=== PATIENT | female | born 1940 | race Caucasian/White ===

== ENCOUNTER → 2024-05-19 | Outpatient (REF) | payer MEDICARE, MEDICAID ==
[2024-05-19 13:12] LABS: HEMATOCRIT 39.3 % (36.0-47.0); HEMOGLOBIN 12.4 g/dl (12.0-15.5); MEAN CORPUSCULAR HEMOGLOBIN 29.4 pg (27.0-33.0); MEAN CORPUSCULAR HGB CONC 31.6 g/dl (32.0-36.5); MEAN CORPUSCULAR VOLUME 93.1 fl (80.0-96.0); PLATELET COUNT, AUTOMATED 272 10^3/uL (150-450); RED BLOOD COUNT 4.22 10^6/uL (4.00-5.40); WHITE BLOOD COUNT 6.1 10^3/uL (4.0-10.0)
[2024-05-19 13:34] LABS: BLOOD UREA NITROGEN 23 MG/DL (9-23); CALCIUM LEVEL 9.7 MG/DL (8.3-10.6); CARBON DIOXIDE LEVEL 29 MMOL/L (20-31); CHLORIDE LEVEL 106 MMOL/L (98-107); CREATININE FOR GFR 0.93 MG/DL (0.55-1.30); GLOMERULAR FILTRATION RATE > 60.0 (>32); GLUCOSE, FASTING 103 MG/DL (74-106); POTASSIUM SERUM 4.3 MMOL/L (3.5-5.1); SODIUM LEVEL 142 MMOL/L (136-145)
== END ==
LOC: SKLAB5 12:37
PROVIDERS: ATTEND Internal Medicine
DX: I48.0 Paroxysmal atrial fibrillation (principal)

== ENCOUNTER → 2024-07-04 | Outpatient (REF) | payer MEDICARE, MEDICAID ==
[2024-07-04 10:28] LABS: HEMATOCRIT 35.3 % (36.0-47.0); HEMOGLOBIN 11.1 g/dl (12.0-15.5); MEAN CORPUSCULAR HEMOGLOBIN 29.8 pg (27.0-33.0); MEAN CORPUSCULAR HGB CONC 31.4 g/dl (32.0-36.5); MEAN CORPUSCULAR VOLUME 94.9 fl (80.0-96.0); PLATELET COUNT, AUTOMATED 203 10^3/uL (150-450); RED BLOOD COUNT 3.72 10^6/uL (4.00-5.40); WHITE BLOOD COUNT 5.9 10^3/uL (4.0-10.0)
[2024-07-04 11:20] LABS: ALBUMIN 3.3 G/DL (3.2-5.2); ALKALINE PHOSPHATASE 89 U/L (35-104); ALT/SGPT 18 U/L (7.0-40); AST/SGOT 19 U/L (<34); BILIRUBIN,TOTAL 0.5 MG/DL (0.3-1.2); BLOOD UREA NITROGEN 31 MG/DL (9-23); CALCIUM LEVEL 9.6 MG/DL (8.3-10.6); CARBON DIOXIDE LEVEL 31 MMOL/L (20-31); CHLORIDE LEVEL 104 MMOL/L (98-107); CHOLESTEROL LEVEL 134 MG/DL (<200); CHOLESTEROL RISK RATIO 3.08 (<5); CREATININE FOR GFR 0.86 MG/DL (0.55-1.30); GLOMERULAR FILTRATION RATE > 60.0 (>32); GLUCOSE, FASTING 100 MG/DL (74-106); HDL CHOLESTEROL 43.5 MG/DL (>40); LDL CHOLESTEROL 63.9 MG/DL (<100); NON-HDL-C 90.5 MG/DL; POTASSIUM SERUM 4.4 MMOL/L (3.5-5.1); SODIUM LEVEL 143 MMOL/L (136-145); THYROID STIMULATING HORMONE 1.355 uIU/ML (0.55-4.78); TOTAL PROTEIN 6.1 G/DL (5.7-8.2); TRIGLYCERIDES LEVEL 133 MG/DL (<150)
== END ==
LOC: SKLAB5 07:00
PROVIDERS: ATTEND Internal Medicine
DX: R53.83 Other fatigue (principal); E78.5 Hyperlipidemia, unspecified; I10 Essential (primary) hypertension

== ENCOUNTER → 2024-12-23 | Outpatient (REF) | payer MEDICARE, MEDICAID ==
[2024-12-23 08:11] LABS: HEMATOCRIT 31.9 % (36.0-47.0); HEMOGLOBIN 9.8 g/dl (12.0-15.5); MEAN CORPUSCULAR HGB CONC 30.7 g/dl (32.0-36.5); MEAN CORPUSCULAR VOLUME 94.4 fl (80.0-96.0); PLATELET COUNT, AUTOMATED 217 10^3/uL (150-450); RED BLOOD COUNT 3.38 10^6/uL (4.00-5.40); WHITE BLOOD COUNT 5.1 10^3/uL (4.0-10.0)
[2024-12-23 08:41] LABS: ALBUMIN 3.4 G/DL (3.2-5.2); BILIRUBIN,TOTAL 0.4 MG/DL (0.3-1.2); CREATININE FOR GFR 0.98 MG/DL (0.55-1.30); GLOMERULAR FILTRATION RATE 56.6 (>32); POTASSIUM SERUM 4.5 MMOL/L (3.5-5.1); TOTAL PROTEIN 5.9 G/DL (5.7-8.2)
== END ==
LOC: SKLAB5 07:00
PROVIDERS: ATTEND Internal Medicine
DX: I10 Essential (primary) hypertension (principal)

== ENCOUNTER → 2025-02-23 | Outpatient (CLI) | payer MEDICARE, MEDICAID | LOC: M RAD 11:26 | PROVIDERS: ATTEND Nurse Practitioner Family | DX: M19.011 Primary osteoarthritis, right shoulder (principal) ==

== ENCOUNTER → 2025-04-16 | Outpatient (CLI) | payer MEDICARE, MEDICAID | LOC: M RAD 10:17 | PROVIDERS: ATTEND Physician Assistant | DX: I67.2 Cerebral atherosclerosis (principal); R29.818 Other symptoms and signs involving the nervous system ==

== ENCOUNTER → 2025-04-17 | Outpatient (REF) | payer MEDICARE, MEDICAID ==
[2025-04-17 08:32] LABS: PLATELET COUNT, AUTOMATED 227 10^3/uL (150-450)
[2025-04-17 08:45] LABS: ALT/SGPT < 9 U/L (7.0-40); AST/SGOT 10 U/L (<34); CALCIUM LEVEL 9.1 MG/DL (8.3-10.6); CARBON DIOXIDE LEVEL 27 MMOL/L (20-31); CHLORIDE LEVEL 110 MMOL/L (98-107); CREATININE FOR GFR 1.02 MG/DL (0.55-1.30); GLOMERULAR FILTRATION RATE 53.9 (>32); POTASSIUM SERUM 4.6 MMOL/L (3.5-5.1); SODIUM LEVEL 146 MMOL/L (136-145)
[2025-04-17 08:47] LABS: ESTIMATED AVERAGE GLUCOSE 117.0 MG/DL (60-110)
== END ==
LOC: SKLAB5 07:00
PROVIDERS: ATTEND Internal Medicine
DX: N18.9 Chronic kidney disease, unspecified (principal); D64.9 Anemia, unspecified; Z79.899 Other long term (current) drug therapy

== ENCOUNTER 2025-06-07 10:40 | Inpatient (IN) | payer MEDICAID, MEDICARE ==
[2025-06-07] VITALS (23 sets, daily range): BP systolic 97–158; BP diastolic 44–67; TEMP 97.2–98.9; O2SAT 90–100
[2025-06-07 11:24] LABS: PLATELET COUNT, AUTOMATED 287 10^3/uL (150-450)
[2025-06-07 11:45] LABS: INR 1.47
[2025-06-07 11:48] LABS: CALCIUM LEVEL 8.1 MG/DL (8.3-10.6); CARBON DIOXIDE LEVEL 26.0 MMOL/L (20-31); CHLORIDE LEVEL 110.0 MMOL/L (98-107); CREATININE FOR GFR 1.07 MG/DL (0.55-1.30); GLOMERULAR FILTRATION RATE 50.9 (>32); POTASSIUM SERUM 4.3 MMOL/L (3.5-5.1); SODIUM LEVEL 144.0 MMOL/L (136-145)
[2025-06-07] MEDS: PANTOPRAZOLE 40MG VIAL IV ONE (11:50)
[2025-06-07] MEDS: PANTOPRAZOLE SODIUM 40 MG in D5W 50 ML IV SCH (12:27)
[2025-06-07] MEDS ORDERED: LISI2.5T9 PO (15:22)
[2025-06-07] MEDS ORDERED: MIRA3350 PO (15:22)
[2025-06-07] MEDS ORDERED: LIPI20TA PO (15:22)
[2025-06-07] MEDS ORDERED: ASPI81TA26 PO (15:22)
[2025-06-07] MEDS ORDERED: ACET-897 PO (15:22)
[2025-06-07] MEDS ORDERED: ACET-1515 PO (15:22)
[2025-06-07] MEDS ORDERED: ELIQ5TAB PO (15:22)
[2025-06-07] MEDS ORDERED: FAMO20TA PO (15:22)
[2025-06-07] MEDS ORDERED: SENN-23 PO (15:22)
[2025-06-07] MEDS ORDERED: CEFT1INJ5 IM (15:22)
[2025-06-07] MEDS ORDERED: LIDO76.52 TOP (15:22)
[2025-06-07] MEDS ORDERED: DICL100G10 TOP (15:22)
[2025-06-07] MEDS ORDERED: NEUR300C PO (15:22)
[2025-06-07] MEDS ORDERED: HOME MED LIST COMPLETE! XX SCH (15:25)
[2025-06-07] MEDS: SUCRALFATE SUSP 1GM/10ML UD PO SCH (18:10)
[2025-06-07] MEDS: ACETAMINOPHEN 325 MG TAB PO PRN (19:35)
[2025-06-07] MEDS: GABAPENTIN 300 MG CAP PO SCH (20:21)
[2025-06-07] MEDS: ATORVASTATIN 20 MG TAB PO SCH (20:21)
[2025-06-08] MEDS: PANTOPRAZOLE 40MG VIAL IV SCH (00:22)
[2025-06-08 01:27] LABS: INR 1.19
[2025-06-08 04:59] VITALS: BP 134/60; TEMP 97.2; O2SAT 96
[2025-06-08 05:55] LABS: BASO # 0.1 10^3/uL (0.0-0.2); BASO % 0.9 % (0.0-1.0); EOS # 0.2 10^3/uL (0.0-0.5); EOS % 4.2 % (0.0-3.0); LYMPH # 1.5 10^3/uL (1.5-5.0); LYMPH % 26.9 % (24.0-44.0); MONO # 0.6 10^3/uL (0.0-0.8); MONO % 10.6 % (2.0-8.0); NEUTROPHILS # 3.2 10^3/uL (1.5-8.5); NEUTROPHILS % 56.7 % (36.0-66.0); PLATELET COUNT, AUTOMATED 247 10^3/uL (150-450)
[2025-06-08 06:27] LABS: CALCIUM LEVEL 8.0 MG/DL (8.3-10.6); CARBON DIOXIDE LEVEL 25.0 MMOL/L (20-31); CHLORIDE LEVEL 108.0 MMOL/L (98-107); CREATININE FOR GFR 0.94 MG/DL (0.55-1.30); GLOMERULAR FILTRATION RATE 59.5 (>32); MAGNESIUM LEVEL 2.3 MG/DL (1.8-2.4); POTASSIUM SERUM 4.4 MMOL/L (3.5-5.1); SODIUM LEVEL 141.0 MMOL/L (136-145)
[2025-06-08 07:53] VITALS: BP 152/70; TEMP 97.1; O2SAT 97
[2025-06-08 08:26] LABS: IRON (FE) 11.0 UG/DL (50-170); PERCENT SATURATION 3.5 % (13.2-45.0)
[2025-06-08 08:29] LABS: VITAMIN B12 LEVEL 347.0 PG/ML (211-911)
[2025-06-08] MEDS: MAGNESIUM CITRATE 300 ML BTL PO ONE (09:27)
[2025-06-08 14:41] LABS: PLATELET COUNT, AUTOMATED 248 10^3/uL (150-450)
[2025-06-08 16:05] VITALS: BP 147/67; TEMP 98; O2SAT 97
[2025-06-08] MEDS: FERRIC CARBOXYMALTOSE INJ 750 MG, VIAL MATE ADAPTER 1 EACH in NS 100 ML IV ONE (16:12)
[2025-06-08] MEDS: POLYETHYLENE GLYCOL 238 GM BOTTLE PO ONE (16:43)
[2025-06-08 20:24] LABS: PLATELET COUNT, AUTOMATED 233 10^3/uL (150-450)
[2025-06-08 20:49] VITALS: BP 135/58; TEMP 98.3; O2SAT 93
[2025-06-08 23:56] VITALS: BP 135/63; O2SAT 96
[2025-06-09 00:29] VITALS: TEMP 98.2
[2025-06-09 02:15] LABS: PLATELET COUNT, AUTOMATED 226 10^3/uL (150-450)
[2025-06-09 03:57] VITALS: BP 142/74; TEMP 97.7; O2SAT 96
[2025-06-09 06:27] LABS: BASO # 0.0 10^3/uL (0.0-0.2); BASO % 0.5 % (0.0-1.0); EOS # 0.2 10^3/uL (0.0-0.5); EOS % 3.0 % (0.0-3.0); LYMPH # 1.3 10^3/uL (1.5-5.0); LYMPH % 16.4 % (24.0-44.0); MONO # 1.0 10^3/uL (0.0-0.8); MONO % 12.5 % (2.0-8.0); NEUTROPHILS # 5.1 10^3/uL (1.5-8.5); NEUTROPHILS % 66.8 % (36.0-66.0); PLATELET COUNT, AUTOMATED 223 10^3/uL (150-450)
[2025-06-09 06:34] LABS: CALCIUM LEVEL 8.1 MG/DL (8.3-10.6); CARBON DIOXIDE LEVEL 26.0 MMOL/L (20-31); CHLORIDE LEVEL 109.0 MMOL/L (98-107); CREATININE FOR GFR 0.84 MG/DL (0.55-1.30); GLOMERULAR FILTRATION RATE 68.1 (>32); MAGNESIUM LEVEL 2.5 MG/DL (1.8-2.4); POTASSIUM SERUM 4.0 MMOL/L (3.5-5.1); SODIUM LEVEL 143.0 MMOL/L (136-145)
[2025-06-09] MEDS: POLYETHYLENE GLYCOL 238 GM BOTTLE PO ONE (07:42)
[2025-06-09 08:00] VITALS: BP 139/63; TEMP 97.6; O2SAT 96
[2025-06-09 16:00] VITALS: BP 156/68; TEMP 97.4; O2SAT 96
[2025-06-09] MEDS ORDERED: LIDOCAINE 2% 100 MG/5 ML SDV (FOR ANES.) As Ordered ONE (17:34)
[2025-06-09 20:52] VITALS: BP 161/69; TEMP 97.2; O2SAT 95
[2025-06-09] MEDS ORDERED: ATROPINE SULF 0.4 MG/ML 1 ML VIAL As Ordered ONE (23:08)
[2025-06-09] MEDS ORDERED: ONDANSETRON 4MG/2ML VIAL IV PRN (23:35)
[2025-06-10] VITALS (8 sets, daily range): BP systolic 108–158; BP diastolic 46–77; TEMP 98.1–98.8; O2SAT 90–95
[2025-06-10 05:44] LABS: BASO # 0.0 10^3/uL (0.0-0.2); BASO % 0.3 % (0.0-1.0); EOS # 0.1 10^3/uL (0.0-0.5); EOS % 1.4 % (0.0-3.0); LYMPH # 0.8 10^3/uL (1.5-5.0); LYMPH % 9.6 % (24.0-44.0); MONO # 0.9 10^3/uL (0.0-0.8); MONO % 10.2 % (2.0-8.0); NEUTROPHILS # 6.9 10^3/uL (1.5-8.5); NEUTROPHILS % 77.9 % (36.0-66.0); PLATELET COUNT, AUTOMATED 222 10^3/uL (150-450)
[2025-06-10 06:09] LABS: CALCIUM LEVEL 8.1 MG/DL (8.3-10.6); CARBON DIOXIDE LEVEL 26.0 MMOL/L (20-31); CHLORIDE LEVEL 108.0 MMOL/L (98-107); CREATININE FOR GFR 0.96 MG/DL (0.55-1.30); GLOMERULAR FILTRATION RATE 58.0 (>32); MAGNESIUM LEVEL 2.3 MG/DL (1.8-2.4); POTASSIUM SERUM 4.0 MMOL/L (3.5-5.1); SODIUM LEVEL 143.0 MMOL/L (136-145)
[2025-06-10] MEDS ORDERED: SIMETHICONE 80MG CHEW TAB PO PRN (08:30)
[2025-06-10] MEDS ORDERED: SIME80CH6 PO (10:16)
== END 2025-06-10 12:47 | DRG 378 ==
LOC: M ED 10:40 → EDBD 10:40 → M ED INP 13:00 → EEVIPCON 13:00 → M ICU 14:28 → M PCU 22:10
PROVIDERS: ADMIT Internal Medicine; ATTEND Internal Medicine
PROC: 30233N1 Transfusion of Nonautologous Red Blood Cells into Peripheral Vein, Percutaneous Approach (ICD-10-PCS; 2025-06-07)
PROC: 0DBK8ZX Excision of Ascending Colon, Via Natural or Artificial Opening Endoscopic, Diagnostic (ICD-10-PCS; 2025-06-09)
PROC: 0DJ08ZZ Inspection of Upper Intestinal Tract, Via Natural or Artificial Opening Endoscopic (ICD-10-PCS; principal; 2025-06-09 17:00)
DX: K92.2 Gastrointestinal hemorrhage, unspecified (principal); I69.354 Hemiplegia and hemiparesis following cerebral infarction affecting left non-dominant side; I10 Essential (primary) hypertension; I48.91 Unspecified atrial fibrillation; E78.5 Hyperlipidemia, unspecified; G62.9 Polyneuropathy, unspecified; K59.00 Constipation, unspecified; R13.10 Dysphagia, unspecified; K21.9 Gastro-esophageal reflux disease without esophagitis; R53.1 Weakness; Z87.891 Personal history of nicotine dependence; D50.0 Iron deficiency anemia secondary to blood loss (chronic); K57.30 Diverticulosis of large intestine without perforation or abscess without bleeding; K64.8 Other hemorrhoids; D12.2 Benign neoplasm of ascending colon; K63.89 Other specified diseases of intestine; Z79.01 Long term (current) use of anticoagulants; Z79.82 Long term (current) use of aspirin; Z79.899 Other long term (current) drug therapy

== ENCOUNTER → 2025-06-07 | Outpatient (REF) | payer MEDICARE, MEDICAID ==
[~2025-06-07] MED LIST: ACET-1515 PO; ACET-897 PO; ASPI81TA26 PO; CEFT1INJ5 IM; DICL100G10 TOP; ELIQ5TAB PO; FAMO20TA PO; FERR325T3 PO; GABA-1172 PO; LIDO76.52 TOP; LIPI20TA PO; LISI2.5T9 PO; MIRA3350 PO; NEUR300C PO; PANT20TA51 PO; SENN-23 PO; SIME80CH6 PO; SUCR1TA PO
[2025-06-07 02:32] LABS: APPEARANCE, URINE HAZY (CLEAR); BACTERIA, URINE AUTO 2+ (NEGATIVE); BILIRUBIN, URINE AUTO NEGATIVE (NEGATIVE); BLOOD, URINE BLOOD NEGATIVE (NEGATIVE); GLUCOSE, URINE (UA) AUTO NEGATIVE (NEGATIVE); KETONE, URINE AUTO NEGATIVE (NEGATIVE); LEUKOCYTE ESTERASE, URINE AUTO TRACE (NEGATIVE); NITRITE, URINE AUTO POSITIVE (NEGATIVE); PROTEIN, URINE AUTO NEGATIVE (NEGATIVE); RBC, URINE AUTO 1 /HPF (0-3); SPECIFIC GRAVITY URINE AUTO 1.015 (1.002-1.035); SQUAMOUS EPITHELIAL CELL UR AU 8 /HPF (0-6); UROBILINOGEN, URINE AUTO 0.2 mg/dL (0.0-2.0); WBC, URINE AUTO 35 /HPF (0-3)
[2025-06-07 09:36] LABS: ALT/SGPT < 9 U/L (7.0-40); AST/SGOT 9 U/L (<34); CALCIUM LEVEL 8.0 MG/DL (8.3-10.6); CARBON DIOXIDE LEVEL 26 MMOL/L (20-31); CHLORIDE LEVEL 111 MMOL/L (98-107); CREATININE FOR GFR 1.08 MG/DL (0.55-1.30); GLOMERULAR FILTRATION RATE 50.3 (>32); POTASSIUM SERUM 4.5 MMOL/L (3.5-5.1); SODIUM LEVEL 145 MMOL/L (136-145)
[2025-06-07 10:05] LABS: BASO # 0.0 10^3/uL (0.0-0.2); BASO % 0.4 % (0.0-1.0); EOS # 0.2 10^3/uL (0.0-0.5); EOS % 3.6 % (0.0-3.0); LYMPH # 1.3 10^3/uL (1.5-5.0); LYMPH % 30.0 % (24.0-44.0); MONO # 0.4 10^3/uL (0.0-0.8); MONO % 8.5 % (2.0-8.0); NEUTROPHILS # 2.5 10^3/uL (1.5-8.5); NEUTROPHILS % 57.1 % (36.0-66.0); PLATELET COUNT, AUTOMATED 269 10^3/uL (150-450)
== END ==
LOC: SKLAB5 07:00
PROVIDERS: ATTEND Nurse Practitioner
DX: R53.83 Other fatigue (principal)

== ENCOUNTER → 2025-06-11 | Outpatient (REF) | payer MEDICARE ==
[~2025-06-11] MED LIST changes: -FERR325T3 PO; -GABA-1172 PO; -PANT20TA51 PO; -SUCR1TA PO
[2025-06-11 10:11] LABS: PLATELET COUNT, AUTOMATED 240 10^3/uL (150-450)
== END ==
LOC: SKLAB5 09:39
PROVIDERS: ATTEND Internal Medicine
DX: D64.9 Anemia, unspecified (principal)

== ENCOUNTER 2025-06-15 22:42 | Observation (INO) | payer MEDICARE ==
[~2025-06-15] VITALS: Ht 154.9 cm; Wt 80.2 kg
[2025-06-15 23:19] LABS: BASO # 0.1 10^3/uL (0.0-0.2); BASO % 1.2 % (0.0-1.0); EOS # 0.3 10^3/uL (0.0-0.5); EOS % 4.6 % (0.0-3.0); LYMPH # 1.8 10^3/uL (1.5-5.0); LYMPH % 29.0 % (24.0-44.0); MONO # 0.5 10^3/uL (0.0-0.8); MONO % 8.0 % (2.0-8.0); NEUTROPHILS # 3.4 10^3/uL (1.5-8.5); NEUTROPHILS % 56.7 % (36.0-66.0); PLATELET COUNT, AUTOMATED 217 10^3/uL (150-450)
[2025-06-15 23:39] LABS: CALCIUM LEVEL 8.1 MG/DL (8.3-10.6); CARBON DIOXIDE LEVEL 26.0 MMOL/L (20-31); CHLORIDE LEVEL 111.0 MMOL/L (98-107); CREATININE FOR GFR 0.96 MG/DL (0.55-1.30); GLOMERULAR FILTRATION RATE 58.0 (>32); POTASSIUM SERUM 3.8 MMOL/L (3.5-5.1); SODIUM LEVEL 145.0 MMOL/L (136-145)
[2025-06-16] VITALS (14 sets, daily range): BP systolic 111–154; BP diastolic 51–72; TEMP 97.5–98.5; O2SAT 95–98
[2025-06-16 01:46] LABS: INR 0.97
[2025-06-16] MEDS: NS (Normal Saline) 0.9% 1,000 ML IV SCH (02:41)
[2025-06-16] MEDS: PANTOPRAZOLE 40MG VIAL IV ONE (02:41)
[2025-06-16 07:08] LABS: PLATELET COUNT, AUTOMATED 199 10^3/uL (150-450)
[2025-06-16 07:40] LABS: ALT/SGPT < 9 U/L (7.0-40); AST/SGOT 10 U/L (<34); CALCIUM LEVEL 8.1 MG/DL (8.3-10.6); CARBON DIOXIDE LEVEL 25 MMOL/L (20-31); CHLORIDE LEVEL 112 MMOL/L (98-107); CREATININE FOR GFR 0.86 MG/DL (0.55-1.30); GLOMERULAR FILTRATION RATE 66.2 (>32); MAGNESIUM LEVEL 2.1 MG/DL (1.8-2.4); POTASSIUM SERUM 3.8 MMOL/L (3.5-5.1); SODIUM LEVEL 146 MMOL/L (136-145)
[2025-06-16] MEDS: PANTOPRAZOLE 40MG VIAL IV SCH (08:13)
[2025-06-16] MEDS ORDERED: SUCR1TA PO (09:18)
[2025-06-16] MEDS ORDERED: SIME80CH6 PO (09:18)
[2025-06-16] MEDS ORDERED: PANT20TA51 PO (09:18)
[2025-06-16] MEDS ORDERED: GABA-1172 PO (09:18)
[2025-06-16] MEDS ORDERED: FERR325T3 PO (09:18)
[2025-06-16] MEDS ORDERED: HOME MED LIST COMPLETE! XX SCH (09:20)
[2025-06-16] MEDS ORDERED: SIMETHICONE 80MG CHEW TAB PO PRN (15:50)
[2025-06-16] MEDS ORDERED: ACETAMINOPHEN 500 MG TAB PO PRN (15:50)
[2025-06-16] MEDS ORDERED: GABAPENTIN 300 MG CAP PO PRN (15:50)
[2025-06-16] MEDS: SUCRALFATE 1 GM TAB PO SCH (16:17)
[2025-06-16] MEDS: ATORVASTATIN 20 MG TAB PO SCH (20:57)
[2025-06-16] MEDS: GABAPENTIN 300 MG CAP PO SCH (20:57)
[2025-06-16] MEDS: PANTOPRAZOLE 40MG TAB PO SCH (20:57)
[2025-06-16] MEDS: ACETAMINOPHEN 650 MG ER TAB PO SCH (20:57)
[2025-06-17] VITALS (22 sets, daily range): BP systolic 122–152; BP diastolic 56–67; TEMP 97.2–98.5; O2SAT 92–98
[2025-06-17 05:59] LABS: PLATELET COUNT, AUTOMATED 206 10^3/uL (150-450)
[2025-06-17 06:20] LABS: CALCIUM LEVEL 8.0 MG/DL (8.3-10.6); CARBON DIOXIDE LEVEL 26.0 MMOL/L (20-31); CHLORIDE LEVEL 113.0 MMOL/L (98-107); CREATININE FOR GFR 0.86 MG/DL (0.55-1.30); GLOMERULAR FILTRATION RATE 66.2 (>32); POTASSIUM SERUM 3.8 MMOL/L (3.5-5.1); SODIUM LEVEL 147.0 MMOL/L (136-145)
[2025-06-18 04:05] VITALS: BP_SYST 132; BP_SYST 139; BP_DIAS 65; BP_DIAS 75; TEMP 97.7; O2SAT 97; O2SAT 98
[2025-06-18 05:28] LABS: PLATELET COUNT, AUTOMATED 205 10^3/uL (150-450)
[2025-06-18 05:50] LABS: CALCIUM LEVEL 8.2 MG/DL (8.3-10.6); CARBON DIOXIDE LEVEL 26.0 MMOL/L (20-31); CHLORIDE LEVEL 110.0 MMOL/L (98-107); CREATININE FOR GFR 0.87 MG/DL (0.55-1.30); GLOMERULAR FILTRATION RATE 65.3 (>32); POTASSIUM SERUM 3.9 MMOL/L (3.5-5.1); SODIUM LEVEL 145.0 MMOL/L (136-145)
[2025-06-18 07:29] VITALS: BP 131/60; TEMP 97.4; O2SAT 95
[2025-06-18 11:27] VITALS: BP 146/66; TEMP 97.7; O2SAT 97
== END 2025-06-18 12:00 ==
LOC: M ED 22:42 → EDBD 22:42 → M ED INP 06-16 02:16 → INTOOBSV 06-16 02:16 → M PCU 06-16 04:47
PROVIDERS: ADMIT Student in an Organized Health Care Education/Training Program; ATTEND Student in an Organized Health Care Education/Training Program
DX: R19.5 Other fecal abnormalities (principal); I69.354 Hemiplegia and hemiparesis following cerebral infarction affecting left non-dominant side; I66.01 Occlusion and stenosis of right middle cerebral artery; I10 Essential (primary) hypertension; I48.91 Unspecified atrial fibrillation; E78.5 Hyperlipidemia, unspecified; G62.9 Polyneuropathy, unspecified; K59.00 Constipation, unspecified; R13.10 Dysphagia, unspecified; K21.9 Gastro-esophageal reflux disease without esophagitis; Z90.79 Acquired absence of other genital organ(s); Z87.891 Personal history of nicotine dependence; Z79.899 Other long term (current) drug therapy; Z79.01 Long term (current) use of anticoagulants; Z79.82 Long term (current) use of aspirin
CPT/HCPCS: 36415; 80048; 80053; 82270; 83605; 83735; 84145; 85025; 85027; 85610; 85730; 86850; 86870; 86900; 86901; 87426; 93005; 96361; 96374; 96376; 99285; G0378; J2470

== ENCOUNTER → 2025-06-24 | Outpatient (REF) | payer MEDICARE ==
[~2025-06-24] MED LIST changes: +FERR325T3 PO; +GABA-1172 PO; +PANT20TA51 PO; +SUCR1TA PO
[2025-06-24 11:16] LABS: PLATELET COUNT, AUTOMATED 336 10^3/uL (150-450)
== END ==
LOC: SKLAB5 10:37
PROVIDERS: ATTEND Internal Medicine
DX: D64.9 Anemia, unspecified (principal)

== ENCOUNTER → 2025-07-01 | Outpatient (REF) | payer MEDICARE ==
[2025-07-01 08:38] LABS: PLATELET COUNT, AUTOMATED 293 10^3/uL (150-450)
== END ==
LOC: SKLAB5 07:00
PROVIDERS: ATTEND Internal Medicine
DX: D64.9 Anemia, unspecified (principal)